=== PATIENT | male | born 1955 | race Hispanic/Latino ===

== ENCOUNTER 2017-07-30 15:44 | Inpatient (IN) | payer MEDICARE, BC ==
[2017-07-30 15:48] VITALS: BMI 31.9
[2017-07-30 16:58] LABS: BASO # 0.1 K/uL (0.0-0.2); BASO % 0.9 % (0.0-2.0); EOS # 0.1 K/uL (0.0-0.7); EOS % 1.1 % (0.0-4.0); HEMATOCRIT 38.6 % (35.0-51.0); LYMPH # 1.6 K/uL (1.0-4.3); LYMPH % 23.4 % (20.0-40.0); MEAN CELL VOLUME 90.7 fL (80.0-94.0); MEAN CORPUSCULAR HGB CONC 34.2 g/dL (33.0-37.0); MONO # 0.4 K/uL (0.0-0.8); RED CELL DISTRIBUTION WIDTH 13.8 % (11.5-14.5); WHITE BLOOD COUNT 6.8 K/uL (4.8-10.8)
[2017-07-30 17:06] LABS: CHLORIDE 96 mmol/L (98-107); INR 1.1
[2017-07-30 17:07] LABS: SODIUM 133 mmol/L (132-148)
[2017-07-30 17:09] LABS: CARBON DIOXIDE 22 mmol/L (22-30); GFR AFRICAN-AMERICAN > 60
[2017-07-30 17:10] LABS: ALB/GLOB RATIO 1.3 (1.0-2.1); ALKALINE PHOSPHATASE 61 U/L (38-126); ALT/SGPT 25 U/L (21-72); AST/SGOT 28 U/L (17-59); BILIRUBIN,TOTAL 0.7 mg/dL (0.2-1.3); BLOOD UREA NITROGEN 23 mg/dL (9-20); CALCIUM 8.8 mg/dl (8.6-10.4); GLUCOSE,RANDOM 91 mg/dL (75-110); TOTAL PROTEIN 7.6 g/dL (6.3-8.3)
[2017-07-30 17:11] LABS: POTASSIUM 4.9 mmol/L (3.6-5.2)
[2017-07-30] MEDS ORDERED: Piperacillin/Tazobact 3.375 gm 100 ML IV STA (17:23)
[2017-07-30] MEDS ORDERED: Piperacillin/Tazobact 3.375 gm 100 ML IVPB ONE (17:36)
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
--- NOTE | 2017-07-30 18:49 | C.PDOC ---
Time Seen by Provider: 07/30/17 16:03 Chief Complaint (Nursing): Lower Extremity Problem/Injury Past Medical History Vital Signs: Last Vital Signs Temp 98.2 F 07/30/17 18:11 Pulse 65 07/30/17 18:11 Resp 18 07/30/17 18:11 BP 132/75 07/30/17 18:11 Pulse Ox 98 07/30/17 18:11 - Medical History PMH: Seizures Family History: States: Unknown Family Hx - Social History Hx Tobacco Use: No Hx Alcohol Use: No Hx Substance Use: No - Immunization History Hx Tetanus Toxoid Vaccination: No Hx Influenza Vaccination: No Hx Pneumococcal Vaccination: No ED Course And Treatment - Laboratory Results Result Diagrams: 07/30/17 16:55 07/30/17 16:55 Lab Interpretation: Normal ECG: Interpreted By Me ECG Rhythm: Sinus Rhythm ECG Interpretation: Normal Rate From EC O2 Sat by Pulse Oximetry: 98 - Radiology CXR: Interpreted by Me CXR Interpretation: Yes: No Acute Disease - Other Rad L foot X-Ray: Interpreted by Me (L 2nd toe ? periosteal lifting, no SQ gas) Medical Decision Making Medical Decision Making: chronic L foot cellulitis, ? osteo tip of 2nd finger zoruslan empirically Podiatry w Dr. Peggy Stiles in AM Disposition Doctor Will See Patient In The: Hospital Counseled Patient/Family Regarding: Studies Performed, Diagnosis - Disposition Disposition: HOSPITALIZED Disposition Time: 18:49 Condition: GOOD - Clinical Impression Clinical Impression: Cellulitis of foot
--- NOTE | 2017-07-30 19:34 | RAD ---
PROCEDURE: CHEST RADIOGRAPH, 1 VIEW HISTORY: SOB COMPARISON: Portable chest 02/07/2015 FINDINGS: LUNGS: Clear. Improved inspiratory volume. PLEURA: No pneumothorax or pleural fluid seen. CARDIOVASCULAR: Stable cardiomegaly. No pulmonary vascular derangement identified. OSSEOUS STRUCTURES: Scoliotic thoracic spinal deformity again evident. VISUALIZED UPPER ABDOMEN: Normal. OTHER FINDINGS: None. IMPRESSION: Improved inspiratory volume. No acute infiltrate or pleural effusion bilaterally. Stable cardiomegaly.
--- NOTE | 2017-07-30 19:38 | RAD ---
PROCEDURE: Left Foot Radiographs. HISTORY: L toes cellulitis/osteo COMPARISON: None. FINDINGS: BONES: No acute fracture or suspicious lytic or blastic change identified. No definite periosteal reaction. Diffuse osteopenia suggests osteoporosis. Lucency in the digits is prominent and MRI may be useful for better evaluation of potential osteomyelitis than plain film radiography. JOINTS: No dislocation. However, there is diffuse degenerative joint disease manifest by articular cortical sclerosis and joint space narrowing throughout the joints of the forefoot midfoot and hindfoot. . SOFT TISSUES: Dorsal soft tissue edema is in question as well as posterior to the ankle in particular. OTHER FINDINGS: None. IMPRESSION: No fracture subluxation or dislocation. Node overt radiographic sign of osteomyelitis however the patient's level of osteopenia relatively prominent, particularly at the digits, that MRI may be useful for better evaluation of potential osteomyelitis than plain film radiography.
[2017-07-31] MEDS: Piperacill/Tazo 3.375gm in Dex 3.375 GM/50 ML BAG IVPB SCH ×5 (00:15→22:35)
[2017-07-31] MEDS: Pantoprazole 40 mg EC Tab PO SCH (09:58)
[2017-07-31] MEDS ORDERED: ESLICARBAZEPINE ACETATE PO SCH ×2 (10:00)
--- NOTE | 2017-07-31 10:50 | CP.PCM.PN ---
<Matti Stiles - Last Filed: 07/31/17 10:50> Subjective - Date & Time of Evaluation Date of Evaluation: 07/31/17 - Subjective Subjective: Pt seen this am . Objective - Vital Signs/Intake and Output Vital Signs (last 24 hours): Temp Pulse Resp BP Pulse Ox 97.6 F 61 20 125/69 96 07/31/17 07:37 07/31/17 07:37 07/31/17 07:37 07/31/17 07:37 07/31/17 07:37 Intake and Output: 07/31/17 07/31/17 06:59 18:59 Intake Total 220 Balance 220 - Medications Medications: Current Medications Heparin Sodium (Porcine) (Heparin) 5,000 units SC Q12 [facility] Last Admin: 07/31/17 10:02 Dose: Not Given Home Med (Eslicarbazepine Acetate [Aptiom]) 1,200 mg PO DAILY [facility] Piperacillin Sod/Tazobactam Sod (Zosyn 3.375 Gm Iv Premix) 3.375 gm in 50 mls @ 100 mls/hr IVPB Q6H [facility] Last Admin: 07/31/17 05:25 Dose: 100 mls/hr Lamotrigine (Lamictal) 200 mg PO TID [facility] Last Admin: 07/31/17 09:58 Dose: 200 mg Levetiracetam (Keppra) 2,000 mg PO BID [facility] Last Admin: 07/31/17 09:58 Dose: 2,000 mg Mupirocin (Bactroban Ointment) 0 gm TOP BID [facility] Last Admin: 07/31/17 10:40 Dose: Not Given Pantoprazole Sodium (Protonix Ec Tab) 40 mg PO DAILY [facility] Last Admin: 07/31/17 09:58 Dose: 40 mg Pneumococcal Polyvalent Vaccine (Pneumovax 23 Vaccine) 0.5 ml SC .ONCE ONE Stop: 08/02/17 10:01 - Labs Labs: 07/30/17 16:55 07/30/17 16:55 PT 12.1 SECONDS (9.7-12.2) 07/30/17 16:55 INR 1.1 07/30/17 16:55 APTT 35 SECONDS (21-34) H 07/30/17 16:55 <Chris Mina - Last Filed: 07/31/17 15:39> Subjective - Date & Time of Evaluation Date of Evaluation: 07/31/17 Time of Evaluation: 11:00 - Subjective Subjective: Podiatry Consult Note- Dr. Stiles 61 year old male patient seen at bedside for left foot ulcerations. Patient states that he is feeling well today and reports no changes with his feet. Patient denies any further pedal complaints at this time. Patient denies N/V/F/C /CP/SOB Objective - Vital Signs/Intake and Output Vital Signs (last 24 hours): Temp Pulse Resp BP Pulse Ox 97.6 F 61 20 125/69 96 07/31/17 07:37 07/31/17 07:37 07/31/17 07:37 07/31/17 07:37 07/31/17 07:37 Intake and Output: 07/31/17 07/31/17 06:59 18:59 Intake Total 220 Balance 220 - Medications Medications: Current Medications Heparin Sodium (Porcine) (Heparin) 5,000 units SC Q12 [facility] Last Admin: 07/31/17 10:02 Dose: Not Given Home Med (Eslicarbazepine Acetate [Aptiom]) 1,200 mg PO DAILY [facility] Piperacillin Sod/Tazobactam Sod (Zosyn 3.375 Gm Iv Premix) 3.375 gm in 50 mls @ 100 mls/hr IVPB Q6H [facility] Last Admin: 07/31/17 13:18 Dose: 100 mls/hr Lamotrigine (Lamictal) 200 mg PO TID [facility] Last Admin: 07/31/17 13:37 Dose: 200 mg Levetiracetam (Keppra) 2,000 mg PO BID [facility] Last Admin: 07/31/17 09:58 Dose: 2,000 mg Mupirocin (Bactroban Ointment) 0 gm TOP BID [facility] Last Admin: 07/31/17 10:40 Dose: Not Given Pantoprazole Sodium (Protonix Ec Tab) 40 mg PO DAILY [facility] Last Admin: 07/31/17 09:58 Dose: 40 mg Pneumococcal Polyvalent Vaccine (Pneumovax 23 Vaccine) 0.5 ml SC .ONCE ONE Stop: 08/02/17 10:01 - Labs Labs: 07/30/17 16:55 07/30/17 16:55 PT 12.1 SECONDS (9.7-12.2) 07/30/17 16:55 INR 1.1 07/30/17 16:55 APTT 35 SECONDS (21-34) H 07/30/17 16:55 - Constitutional Appears: Well, Non-toxic, No Acute Distress - Extremities Exam Additional comments: LLE exam: VASC- DP/PT pulses palpable, skin temp runs warm to warm (proximal to distal) cap refill < 3 sec to all digits, moderate edema noted to dorsum of left foot NEURO- pedal sensation intact DERM- superficial ulceration noted to dorsal aspect of 2nd digit between PIPJ and DIPJ with 100% granular base, neg probe to bone, no drainage, no fluctuance , no malodor, 3rd digit also has superficial ulceration to dorsal surface with 100% granular base, there is ertythema noted to dorsal aspect of the foot, no ascending cellulitis ORTHO- hammering of digits 2-5 noted, no tenderness to palp of foot - Neurological Exam Neurological Exam: Alert, Awake, Oriented x3 - Psychiatric Exam Psychiatric exam: Normal Affect, Normal Mood Assessment and Plan - Assessment and Plan (Free Text) Assessment: 61 yo male patient with ulcerations/cellulitis left foot (with possible OM) Plan: Patient seen and evaluated Charts, labs and vitals reviewed Plan discussed with Dr. Stiles Patient's foot dressed with DSD Xray of left foot negative for OM but MRI suggested Bone scan results: OM of left second digit Patient had MRI taken this morning: results pending Continue abx per ID No surgical intervention planned at this time Podiatry will continue to follow while patient in house
--- NOTE | 2017-07-31 14:06 | CP.PCM.PN ---
Subjective - Date & Time of Evaluation Date of Evaluation: 07/31/17 Time of Evaluation: 03:00 - Subjective Subjective: Patient seen, up in bed, ambulates, was seen by ui developer, bone scan ongoing no current complaints discussed local intermodal truck driver care and subacute Objective - Vital Signs/Intake and Output Vital Signs (last 24 hours): Temp Pulse Resp BP Pulse Ox 97.6 F 61 20 125/69 96 07/31/17 07:37 07/31/17 07:37 07/31/17 07:37 07/31/17 07:37 07/31/17 07:37 Intake and Output: 07/31/17 07/31/17 06:59 18:59 Intake Total 220 Balance 220 - Medications Medications: Current Medications Heparin Sodium (Porcine) (Heparin) 5,000 units SC Q12 [facility] Last Admin: 07/31/17 10:02 Dose: Not Given Home Med (Eslicarbazepine Acetate [Aptiom]) 1,200 mg PO DAILY [facility] Piperacillin Sod/Tazobactam Sod (Zosyn 3.375 Gm Iv Premix) 3.375 gm in 50 mls @ 100 mls/hr IVPB Q6H [facility] Last Admin: 07/31/17 13:18 Dose: 100 mls/hr Lamotrigine (Lamictal) 200 mg PO TID [facility] Last Admin: 07/31/17 13:37 Dose: 200 mg Levetiracetam (Keppra) 2,000 mg PO BID [facility] Last Admin: 07/31/17 09:58 Dose: 2,000 mg Mupirocin (Bactroban Ointment) 0 gm TOP BID [facility] Last Admin: 07/31/17 10:40 Dose: Not Given Pantoprazole Sodium (Protonix Ec Tab) 40 mg PO DAILY [facility] Last Admin: 07/31/17 09:58 Dose: 40 mg Pneumococcal Polyvalent Vaccine (Pneumovax 23 Vaccine) 0.5 ml SC .ONCE ONE Stop: 08/02/17 10:01 - Labs Labs: 07/30/17 16:55 07/30/17 16:55 PT 12.1 SECONDS (9.7-12.2) 07/30/17 16:55 INR 1.1 07/30/17 16:55 APTT 35 SECONDS (21-34) H 07/30/17 16:55 - Constitutional Appears: Well, Non-toxic, No Acute Distress - Head Exam Head Exam: ATRAUMATIC, NORMOCEPHALIC - Eye Exam Eye Exam: Normal appearance - Neck Exam Neck Exam: Full ROM - Respiratory Exam Respiratory Exam: Clear to Ausculation Bilateral, NORMAL BREATHING PATTERN - GI/Abdominal Exam GI & Abdominal Exam: Soft, Normal Bowel Sounds. absent: Tenderness - Extremities Exam Extremities Exam: Full ROM (left foot bandaged, notes as per ui developer ) - Back Exam Back Exam: absent: CVA tenderness (R), rash noted, tenderness - Neurological Exam Neurological Exam: Alert, Awake, Oriented x3. absent: Normal Gait - Psychiatric Exam Psychiatric exam: Normal Affect, Normal Mood - Skin Skin Exam: Intact (other than the lesion in left foot ), Normal Color Assessment and Plan - Assessment and Plan (Free Text) Assessment: Cellulitis left foot with possible ostemyelitis on antibiotic with podiatry care, ID consulted further discussion of local intermodal truck driver treatment and subaute Seizure disorder to continue current medications
--- NOTE | 2017-07-31 14:25 | NM ---
PROCEDURE: Whole Body Bone Scan HISTORY: osteomyelitis COMPARISON: Left foot MRI 07/31/2017. TECHNIQUE: Following administration of 23.1 miCu of Tc MDP multiplanar whole body images were obtained. FINDINGS: Evidence for bony metastatic disease: Persistent uptake is appreciated at the 2nd digit left foot. Degenerative uptake: None. Physiologic uptake: Normal physiologic activity in the kidneys. Other findings: None. IMPRESSION: Osteomyelitis of the left foot 2nd digit is suggested by this examination. Findings agree with MRI 07/31/2017. Clinically correlate further.
[2017-08-01] MEDS: Piperacill/Tazo 3.375gm in Dex 3.375 GM/50 ML BAG IVPB SCH ×4 (05:08→23:04)
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
[2017-08-01] MEDS: Pantoprazole 40 mg EC Tab PO SCH (10:39)
--- NOTE | 2017-08-01 11:37 | CP.PCM.PN ---
Subjective - Date & Time of Evaluation Date of Evaluation: 08/01/17 Time of Evaluation: 11:34 - Subjective Subjective: Podiatry Consult Note- Dr. Stiles 61 year old male patient seen at bedside for left foot ulcerations. Patient states that he is feeling well today and reports no changes with his feet. States that his dressing fell off in the sheets last night. Patient denies any further pedal complaints at this time. Patient denies N/V/F/C/CP/SOB Objective - Vital Signs/Intake and Output Vital Signs (last 24 hours): Temp Pulse Resp BP Pulse Ox 97.4 F L 59 L 20 133/71 97 08/01/17 07:47 08/01/17 07:47 08/01/17 07:47 08/01/17 07:47 08/01/17 07:47 Intake and Output: 08/01/17 08/01/17 06:59 18:59 Intake Total 680 Balance 680 - Medications Medications: Current Medications Heparin Sodium (Porcine) (Heparin) 5,000 units SC Q12 [facility] Last Admin: 08/01/17 10:40 Dose: 5,000 units Home Med (Eslicarbazepine Acetate [Aptiom]) 1,200 mg PO DAILY [facility] Piperacillin Sod/Tazobactam Sod (Zosyn 3.375 Gm Iv Premix) 3.375 gm in 50 mls @ 100 mls/hr IVPB Q6H [facility] Last Admin: 08/01/17 11:27 Dose: 100 mls/hr Lamotrigine (Lamictal) 200 mg PO TID [facility] Last Admin: 08/01/17 10:40 Dose: 200 mg Levetiracetam (Keppra) 2,000 mg PO BID [facility] Last Admin: 08/01/17 10:39 Dose: 2,000 mg Mupirocin (Bactroban Ointment) 0 gm TOP BID [facility] Last Admin: 08/01/17 11:26 Dose: 1 applic Pantoprazole Sodium (Protonix Ec Tab) 40 mg PO DAILY [facility] Last Admin: 08/01/17 10:39 Dose: 40 mg Pneumococcal Polyvalent Vaccine (Pneumovax 23 Vaccine) 0.5 ml SC .ONCE ONE Stop: 08/02/17 10:01 - Labs Labs: 07/30/17 16:55 07/30/17 16:55 PT 12.1 SECONDS (9.7-12.2) 07/30/17 16:55 INR 1.1 07/30/17 16:55 APTT 35 SECONDS (21-34) H 07/30/17 16:55 - Constitutional Appears: Well, Non-toxic, No Acute Distress - Extremities Exam Additional comments: LLE exam: VASC- DP/PT pulses palpable, skin temp runs warm to warm (proximal to distal) cap refill < 3 sec to all digits, moderate edema noted to dorsum of left foot NEURO- pedal sensation intact DERM- superficial ulceration noted to dorsal aspect of 2nd digit between PIPJ and DIPJ with 100% granular base, neg probe to bone, no drainage, no fluctuance , no malodor, 3rd digit also has superficial ulceration to dorsal surface with 100% granular base, there is ertythema noted to dorsal aspect of the foot, no ascending cellulitis ORTHO- hammering of digits 2-5 noted, no tenderness to palp of foot - Neurological Exam Neurological Exam: Alert, Awake, Oriented x3 - Psychiatric Exam Psychiatric exam: Normal Affect, Normal Mood Assessment and Plan - Assessment and Plan (Free Text) Assessment: 61 yo male patient with ulcerations/cellulitis left foot (with possible OM) Plan: Patient seen and evaluated Charts, labs and vitals reviewed Plan discussed with Dr. Stiles Patient's foot dressed with Bactroban, DSD Xray of left foot negative for OM but MRI suggested Bone scan results: OM of left second digit Patient had MRI taken yesterday: results pending Continue abx per ID No surgical intervention planned at this time Podiatry will continue to follow while patient in house
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
[2017-08-01] MEDS: Vancomycin 1 gm/NS 200 ml 1 GM/200 ML BAG IVPB SCH (17:54)
[2017-08-02] MEDS: Piperacill/Tazo 3.375gm in Dex 3.375 GM/50 ML BAG IVPB SCH ×4 (04:39→23:43)
[2017-08-02] MEDS: Vancomycin 1 gm/NS 200 ml 1 GM/200 ML BAG IVPB SCH ×2 (05:10→18:00)
[2017-08-02] MEDS: Pantoprazole 40 mg EC Tab PO SCH (10:00)
[2017-08-02] MEDS ORDERED: Pneumococcal 23-Valent Vaccine SC ONE (10:00)
--- NOTE | 2017-08-02 10:06 | MRI ---
MRI left forefoot History: Swelling. Evaluate for osteomyelitis. Comparison: Bone scan dated 07/31/2017 Technique: Multi-echo multiplanar sequences were performed through the left forefoot without the use of intravenous contrast. Findings: Prominent soft tissue swelling seen at the level of the 2nd digit. Prominent reactive edema seen within the 2nd middle phalanx with associated patchy decreased T1 signal noted at the head of the 2nd middle phalanx. These findings are concerning for acute and or developing acute osteomyelitis. Clinical correlation. Adjacent reactive edema seen within 2nd distal phalanx. Moderate hallux valgus deformity with degenerative changes at the metatarsus sesamoid joint space. Small amount of fluid noted within the tendon sheath of the flexor hallucis longus and flexor digitorum tendons. Impression: Findings concerning for acute osteomyelitis and or developing acute osteomyelitis at the level of the 2nd middle phalanx. Reactive edema within the 2nd distal phalanx. These findings were discordant from the preliminary report dated 07/31/2017 at 3:[address] Kenisha Cottrell from [facility]. These findings were discussed with nurse Gan at 10 a.m. on 08/02/[address] Tristan Zamarripa.
--- NOTE | 2017-08-02 11:33 | CP.PCM.PN ---
Subjective - Date & Time of Evaluation Date of Evaluation: 08/02/17 Time of Evaluation: 09:00 - Subjective Subjective: + OM await cultures possible OR pain less Objective - Vital Signs/Intake and Output Vital Signs (last 24 hours): Temp Pulse Resp BP Pulse Ox 98.1 F 61 19 157/87 H 98 08/02/17 07:36 08/02/17 07:36 08/02/17 07:36 08/02/17 07:36 08/02/17 07:36 Intake and Output: 08/02/17 08/02/17 06:59 18:59 Intake Total 1030 Output Total 850 Balance 180 - Medications Medications: Current Medications Heparin Sodium (Porcine) (Heparin) 5,000 units SC Q12 [facility] Last Admin: 08/01/17 21:41 Dose: 5,000 units Home Med (Eslicarbazepine Acetate [Aptiom]) 1,200 mg PO DAILY [facility] Piperacillin Sod/Tazobactam Sod (Zosyn 3.375 Gm Iv Premix) 3.375 gm in 50 mls @ 100 mls/hr IVPB Q6H [facility] Last Admin: 08/02/17 04:39 Dose: 100 mls/hr Vancomycin/Sodium Chloride (Vancocin) 1 gm in 200 mls @ 133.333 mls/hr IVPB Q12H [facility] Stop: 08/06/17 18:01 Last Admin: 08/02/17 05:10 Dose: 133.333 mls/hr Lamotrigine (Lamictal) 200 mg PO TID [facility] Last Admin: 08/01/17 17:34 Dose: 200 mg Levetiracetam (Keppra) 2,000 mg PO BID [facility] Last Admin: 08/01/17 17:34 Dose: 2,000 mg Mupirocin (Bactroban Ointment) 0 gm TOP BID [facility] Last Admin: 08/01/17 11:26 Dose: 1 applic Pantoprazole Sodium (Protonix Ec Tab) 40 mg PO DAILY [facility] Last Admin: 08/01/17 10:39 Dose: 40 mg - Labs Labs: 07/30/17 16:55 07/30/17 16:55 PT 12.1 SECONDS (9.7-12.2) 07/30/17 16:55 INR 1.1 07/30/17 16:55 APTT 35 SECONDS (21-34) H 07/30/17 16:55 - Constitutional Appears: Non-toxic, Cachectic, Chronically Ill - Head Exam Head Exam: NORMOCEPHALIC - Eye Exam Eye Exam: PERRL - ENT Exam ENT Exam: Mucous Membranes Dry, Normal External Ear Exam - Neck Exam Neck Exam: absent: Lymphadenopathy - Respiratory Exam Respiratory Exam: Decreased Breath Sounds, Clear to Ausculation Bilateral - Cardiovascular Exam Cardiovascular Exam: REGULAR RHYTHM, +S1, +S2 - GI/Abdominal Exam GI & Abdominal Exam: Distended, Soft - Rectal Exam Rectal Exam: Deferred - Exam Exam: NORMAL INSPECTION - Extremities Exam Extremities Exam: Pedal Edema, Tenderness. absent: Calf Tenderness - Back Exam Back Exam: absent: CVA tenderness (L), CVA tenderness (R) Assessment and Plan (1) Osteomyelitis Status: Acute (2) Osteomyelitis Status: Acute (3) Cellulitis of foot Status: Acute - Assessment and Plan (Free Text) Assessment: IV rx adjusted
--- NOTE | 2017-08-02 17:16 | CP.PCM.PN ---
<Chris Mina - Last Filed: 08/02/17 17:13> Subjective - Date & Time of Evaluation Date of Evaluation: 08/02/17 Time of Evaluation: 11:00 - Subjective Subjective: Podiatry Consult Note- Dr. Stiles 61 year old male patient seen at bedside for left foot ulcerations and OM of left second digit. Patient states that he is feeling well today and reports no changes with his feet. Patient denies any further pedal complaints at this time. Patient denies N/V/F/C/CP/SOB Objective - Vital Signs/Intake and Output Vital Signs (last 24 hours): Temp Pulse Resp BP Pulse Ox 98.1 F 61 19 157/87 H 98 08/02/17 07:36 08/02/17 07:36 08/02/17 07:36 08/02/17 07:36 08/02/17 07:36 Intake and Output: 08/02/17 08/02/17 06:59 18:59 Intake Total 1030 Output Total 850 Balance 180 - Medications Medications: Current Medications Heparin Sodium (Porcine) (Heparin) 5,000 units SC Q12 [facility] Last Admin: 08/02/17 10:00 Dose: 5,000 units Home Med (Eslicarbazepine Acetate [Aptiom]) 1,200 mg PO DAILY [facility] Piperacillin Sod/Tazobactam Sod (Zosyn 3.375 Gm Iv Premix) 3.375 gm in 50 mls @ 100 mls/hr IVPB Q6H [facility] Last Admin: 08/02/17 12:04 Dose: 100 mls/hr Vancomycin/Sodium Chloride (Vancocin) 1 gm in 200 mls @ 133.333 mls/hr IVPB Q12H [facility] Stop: 08/06/17 18:01 Last Admin: 08/02/17 05:10 Dose: 133.333 mls/hr Lamotrigine (Lamictal) 200 mg PO TID [facility] Last Admin: 08/02/17 15:25 Dose: 200 mg Levetiracetam (Keppra) 2,000 mg PO BID [facility] Last Admin: 08/02/17 10:00 Dose: 2,000 mg Mupirocin (Bactroban Ointment) 0 gm TOP BID [facility] Last Admin: 08/02/17 09:00 Dose: Not Given Pantoprazole Sodium (Protonix Ec Tab) 40 mg PO DAILY [facility] Last Admin: 08/02/17 10:00 Dose: 40 mg - Labs Labs: 07/30/17 16:55 07/30/17 16:55 PT 12.1 SECONDS (9.7-12.2) 07/30/17 16:55 INR 1.1 07/30/17 16:55 APTT 35 SECONDS (21-34) H 07/30/17 16:55 - Constitutional Appears: Well, Non-toxic, No Acute Distress - Extremities Exam Additional comments: LLE exam: VASC- DP/PT pulses palpable, skin temp runs warm to warm (proximal to distal) cap refill < 3 sec to all digits, moderate edema noted to dorsum of left foot NEURO- pedal sensation intact DERM- superficial ulceration noted to dorsal aspect of 2nd digit between PIPJ and DIPJ, neg probe to bone, no drainage, no fluctuance, no malodor, 3rd digit also has superficial ulceration to dorsal surface, there is ertythema noted to dorsal aspect of the foot, no ascending cellulitis ORTHO- hammering of digits 2-5 noted, no tenderness to palp of foot - Neurological Exam Neurological Exam: Alert, Awake, Oriented x3 - Psychiatric Exam Psychiatric exam: Normal Affect, Normal Mood Assessment and Plan - Assessment and Plan (Free Text) Assessment: 61 year old male with OM of left second digit Plan: Patient seen and evaluated with attending Dr. Stiles Charts, labs and vitals reviewed Patient's foot dressed with Bactroban, DSD MRI (+) OM left second digit middle and distal phalanx Continue abx per ID Arterial duplex of LLE ordered Pending results, plan for local resection of infected bone and infected soft tissue Podiatry will continue to follow while patient in house <Matti Stiles - Last Filed: 08/03/17 09:21> Objective - Vital Signs/Intake and Output Vital Signs (last 24 hours): Temp Pulse Resp BP Pulse Ox 98.0 F 88 20 136/79 99 08/03/17 08:31 08/03/17 08:31 08/03/17 08:31 08/03/17 08:31 08/03/17 08:31 - Medications Medications: Current Medications Heparin Sodium (Porcine) (Heparin) 5,000 units SC Q12 [facility] Last Admin: 08/02/17 21:27 Dose: 5,000 units Home Med (Eslicarbazepine Acetate [Aptiom]) 1,200 mg PO DAILY [facility] Piperacillin Sod/Tazobactam Sod (Zosyn 3.375 Gm Iv Premix) 3.375 gm in 50 mls @ 100 mls/hr IVPB Q6H [facility] Last Admin: 08/03/17 05:05 Dose: 100 mls/hr Vancomycin/Sodium Chloride (Vancocin) 1 gm in 200 mls @ 133.333 mls/hr IVPB Q12H [facility] Stop: 08/06/17 18:01 Last Admin: 08/03/17 05:06 Dose: 133.333 mls/hr Lamotrigine (Lamictal) 200 mg PO TID [facility] Last Admin: 08/02/17 18:01 Dose: 200 mg Levetiracetam (Keppra) 2,000 mg PO BID [facility] Last Admin: 08/02/17 18:02 Dose: 2,000 mg Mupirocin (Bactroban Ointment) 0 gm TOP BID [facility] Last Admin: 08/02/17 21:31 Dose: Not Given Pantoprazole Sodium (Protonix Ec Tab) 40 mg PO DAILY [facility] Last Admin: 08/02/17 10:00 Dose: 40 mg - Labs Labs: 08/03/17 07:43 08/03/17 07:43 PT 12.1 SECONDS (9.7-12.2) 07/30/17 16:55 INR 1.1 07/30/17 16:55 APTT 35 SECONDS (21-34) H 07/30/17 16:55 Assessment and Plan - Assessment and Plan (Free Text) Plan: Pt seen and examined at bedside with resident . chart and labs reviewed. agree with above findings .
--- NOTE | 2017-08-02 17:42 | CP.PCM.PN ---
Subjective - Date & Time of Evaluation Date of Evaluation: 08/02/17 Time of Evaluation: 03:00 - Subjective Subjective: Patient seen, ambulatory conversant aware of condition and plan ongoing antibiotic no pain no complaints Seen by podiatris- plan for surgical rocedure? as per notes Objective - Vital Signs/Intake and Output Vital Signs (last 24 hours): Temp Pulse Resp BP Pulse Ox 98.1 F 61 19 157/87 H 98 08/02/17 07:36 08/02/17 07:36 08/02/17 07:36 08/02/17 07:36 08/02/17 07:36 Intake and Output: 08/02/17 08/02/17 06:59 18:59 Intake Total 1030 Output Total 850 Balance 180 - Medications Medications: Current Medications Heparin Sodium (Porcine) (Heparin) 5,000 units SC Q12 [facility] Last Admin: 08/02/17 10:00 Dose: 5,000 units Home Med (Eslicarbazepine Acetate [Aptiom]) 1,200 mg PO DAILY [facility] Piperacillin Sod/Tazobactam Sod (Zosyn 3.375 Gm Iv Premix) 3.375 gm in 50 mls @ 100 mls/hr IVPB Q6H [facility] Last Admin: 08/02/17 12:04 Dose: 100 mls/hr Vancomycin/Sodium Chloride (Vancocin) 1 gm in 200 mls @ 133.333 mls/hr IVPB Q12H [facility] Stop: 08/06/17 18:01 Last Admin: 08/02/17 05:10 Dose: 133.333 mls/hr Lamotrigine (Lamictal) 200 mg PO TID [facility] Last Admin: 08/02/17 15:25 Dose: 200 mg Levetiracetam (Keppra) 2,000 mg PO BID [facility] Last Admin: 08/02/17 10:00 Dose: 2,000 mg Mupirocin (Bactroban Ointment) 0 gm TOP BID [facility] Last Admin: 08/02/17 09:00 Dose: Not Given Pantoprazole Sodium (Protonix Ec Tab) 40 mg PO DAILY [facility] Last Admin: 08/02/17 10:00 Dose: 40 mg - Labs Labs: 07/30/17 16:55 07/30/17 16:55 PT 12.1 SECONDS (9.7-12.2) 07/30/17 16:55 INR 1.1 07/30/17 16:55 APTT 35 SECONDS (21-34) H 07/30/17 16:55 - Constitutional Appears: Well, Non-toxic - Head Exam Head Exam: ATRAUMATIC, NORMOCEPHALIC - Eye Exam Eye Exam: Normal appearance - ENT Exam ENT Exam: Mucous Membranes Moist - Neck Exam Neck Exam: Full ROM - Respiratory Exam Respiratory Exam: Clear to Ausculation Bilateral, NORMAL BREATHING PATTERN - Cardiovascular Exam Cardiovascular Exam: REGULAR RHYTHM - GI/Abdominal Exam GI & Abdominal Exam: Soft, Normal Bowel Sounds. absent: Tenderness - Extremities Exam Extremities Exam: Full ROM (left foot bandaged, no soiling - notes as per ortho noted) - Back Exam Back Exam: Full ROM. absent: tenderness - Neurological Exam Neurological Exam: Alert, Awake, Oriented x3 (gait abnormal due to accident ) - Psychiatric Exam Psychiatric exam: Normal Affect, Normal Mood - Skin Skin Exam: Intact (other than the left foot ), Normal Color Assessment and Plan - Assessment and Plan (Free Text) Plan: Patient with seizure disorder stable admitted for Osteomyelitis left foot second toe, podiatry on case- ongoing work up- continue antibiotic pending podiatry procedure, will send to subacute when cleared accordingly
[2017-08-03] MEDS: Piperacill/Tazo 3.375gm in Dex 3.375 GM/50 ML BAG IVPB SCH ×3 (05:05→17:53)
[2017-08-03] MEDS: Vancomycin 1 gm/NS 200 ml 1 GM/200 ML BAG IVPB SCH ×2 (05:06→18:00)
[2017-08-03 07:56] LABS: BASO % 0.6 % (0.0-2.0); EOS # 0.1 K/uL (0.0-0.7); EOS % 1.6 % (0.0-4.0); HEMATOCRIT 41.1 % (35.0-51.0); LYMPH # 1.8 K/uL (1.0-4.3); LYMPH % 30.5 % (20.0-40.0); MEAN CORPUSCULAR HEMOGLOBIN 30.8 pg (27.0-31.0); MEAN CORPUSCULAR HGB CONC 33.9 g/dL (33.0-37.0); MEAN PLATELET VOLUME 7.5 fL (7.2-11.7); MONO # 0.4 K/uL (0.0-0.8); MONO % 7.5 % (0.0-10.0); RED CELL DISTRIBUTION WIDTH 14.1 % (11.5-14.5); WHITE BLOOD COUNT 5.9 K/uL (4.8-10.8)
[2017-08-03 08:26] LABS: CHLORIDE 99 mmol/L (98-107); POTASSIUM 4.2 mmol/L (3.6-5.2); SODIUM 140 mmol/L (132-148)
[2017-08-03 08:29] LABS: BLOOD UREA NITROGEN 15 mg/dL (9-20); CARBON DIOXIDE 28 mmol/L (22-30); GFR AFRICAN-AMERICAN > 60
[2017-08-03 08:30] LABS: GLUCOSE,RANDOM 85 mg/dL (75-110)
[2017-08-03 08:32] VITALS: RESP 20
--- NOTE | 2017-08-03 10:04 | CP.PCM.PN ---
<AndreySanju - Last Filed: 08/03/17 21:32> Objective - Vital Signs/Intake and Output Vital Signs (last 24 hours): Temp Pulse Resp BP Pulse Ox 97.5 F L 62 20 126/66 97 08/03/17 16:00 08/03/17 16:00 08/03/17 16:00 08/03/17 16:00 08/03/17 16:00 - Medications Medications: Current Medications Home Med (Eslicarbazepine Acetate [Aptiom]) 1,200 mg PO DAILY [facility] Piperacillin Sod/Tazobactam Sod (Zosyn 3.375 Gm Iv Premix) 3.375 gm in 50 mls @ 100 mls/hr IVPB Q6H [facility] Last Admin: 08/03/17 17:53 Dose: 100 mls/hr Vancomycin/Sodium Chloride (Vancocin) 1 gm in 200 mls @ 133.333 mls/hr IVPB Q12H [facility] Stop: 08/06/17 18:01 Last Admin: 08/03/17 18:00 Dose: 133.333 mls/hr Lamotrigine (Lamictal) 200 mg PO TID [facility] Last Admin: 08/03/17 17:58 Dose: 200 mg Levetiracetam (Keppra) 2,000 mg PO BID [facility] Last Admin: 08/03/17 17:55 Dose: 2,000 mg Mupirocin (Bactroban Ointment) 0 gm TOP BID [facility] Last Admin: 08/03/17 18:00 Dose: 1 applic Pantoprazole Sodium (Protonix Ec Tab) 40 mg PO DAILY [facility] Last Admin: 08/03/17 11:00 Dose: 40 mg - Labs Labs: 08/03/17 07:43 08/03/17 07:43 PT 12.1 SECONDS (9.7-12.2) 07/30/17 16:55 INR 1.1 07/30/17 16:55 APTT 35 SECONDS (21-34) H 07/30/17 16:55 - Constitutional Appears: Well, Non-toxic, No Acute Distress - Extremities Exam Additional comments: LLE exam: VASC- DP/PT pulses palpable, skin temp runs warm to warm (proximal to distal) cap refill < 3 sec to all digits, moderate edema noted to dorsum of left foot NEURO- pedal sensation intact DERM- superficial ulceration noted to dorsal aspect of 2nd digit between PIPJ and DIPJ, neg probe to bone, no drainage, no fluctuance, no malodor, 3rd digit also has superficial ulceration to dorsal surface, there is ertythema noted to dorsal aspect of the foot, no ascending cellulitis ORTHO- hammering of digits 2-5 noted, no tenderness to palp of foot Assessment and Plan - Assessment and Plan (Free Text) Assessment: 61 year old male with OM of left second digit Plan: Patient seen and evaluated with attending Dr. Stiles Charts, labs and vitals reviewed Patient's foot dressed with Bactroban, DSD MRI (+) OM left second digit middle and distal phalanx Continue abx per ID Arterial duplex of LLE-pending. -Discussed with patient at length 3 potential treatment option for his local osetomyelitis ranging rom conservative to invasive. 1) 6-8 weeks of IV antibiotics- pt informed treatment not guaranteed and infection my reappear and be resistant to antibiotics. 2) Digital partial amputation if infected bone- discussed amputation wound complications. 3) partial exostectomy- discussed that potential infected bone may remain and infection could progress with further need for amputation. All patient question were answered to his satisfaction, and pt opted for IV abx treatment at this time. -To coordinate with ID outpatient IV treatment option. With potential placement in [facility] facility. Podiatry will continue to follow while patient in house <Matti Stiles - Last Filed: 08/04/17 10:12> Subjective - Date & Time of Evaluation Date of Evaluation: 08/03/17 Time of Evaluation: 10:00 - Subjective Subjective: Om of middle and distal Phalanx toe 2 left with ulcer full thickness noted in area dorsally . 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 Objective - Vital Signs/Intake and Output Vital Signs (last 24 hours): Temp Pulse Resp BP Pulse Ox 98.0 F 88 20 136/79 99 08/03/17 08:31 08/03/17 08:31 08/03/17 08:31 08/03/17 08:31 08/03/17 08:31 - Medications Medications: Current Medications Heparin Sodium (Porcine) (Heparin) 5,000 units SC Q12 [facility] Last Admin: 08/02/17 21:27 Dose: 5,000 units Home Med (Eslicarbazepine Acetate [Aptiom]) 1,200 mg PO DAILY [facility] Piperacillin Sod/Tazobactam Sod (Zosyn 3.375 Gm Iv Premix) 3.375 gm in 50 mls @ 100 mls/hr IVPB Q6H [facility] Last Admin: 08/03/17 05:05 Dose: 100 mls/hr Vancomycin/Sodium Chloride (Vancocin) 1 gm in 200 mls @ 133.333 mls/hr IVPB Q12H [facility] Stop: 08/06/17 18:01 Last Admin: 08/03/17 05:06 Dose: 133.333 mls/hr Lamotrigine (Lamictal) 200 mg PO TID [facility] Last Admin: 08/02/17 18:01 Dose: 200 mg Levetiracetam (Keppra) 2,000 mg PO BID [facility] Last Admin: 08/02/17 18:02 Dose: 2,000 mg Mupirocin (Bactroban Ointment) 0 gm TOP BID [facility] Last Admin: 08/02/17 21:31 Dose: Not Given Pantoprazole Sodium (Protonix Ec Tab) 40 mg PO DAILY [facility] Last Admin: 08/02/17 10:00 Dose: 40 mg - Labs Labs: 08/03/17 07:43 08/03/17 07:43 PT 12.1 SECONDS (9.7-12.2) 07/30/17 16:55 INR 1.1 07/30/17 16:55 APTT 35 SECONDS (21-34) H 07/30/17 16:55 Assessment and Plan - Assessment and Plan (Free Text) Plan: pt seen and evaluated at bedside . all results reviewed with patient as well as treatment options .agrre with above .Pt opts for 6-8 wks of antibiotics fully informed .DR Stiles.
[2017-08-03] MEDS ORDERED: Lidocaine 2% Inj (20ml) ONE (10:10)
--- NOTE | 2017-08-03 10:21 | PCM.SURG1 ---
Surgeon's Initial Post Op Note - Surgeon's Notes Surgeon: Gaurang Medley MD Insulator Helper: NONE Type of Anesthesia: Local Pre-Operative Diagnosis: Poor venous access Operative Findings: Patent right basilic vein Post-Operative Diagnosis: Poor venous access Operation Performed: Single lumen picc placement right basilic vein, 41 cm. Tip is in the SVC. Specimen/Specimens Removed: None Estimated Blood Loss: EBL {In ML}: 0 Blood Products Given: N/A Drains Used: No Drains Post-Op Condition: Fair Date of Surgery/Procedure: 08/03/17 Time of Surgery/Procedure: 10:10
[2017-08-03] MEDS: Pantoprazole 40 mg EC Tab PO SCH (11:00)
--- NOTE | 2017-08-03 12:38 | CP.PCM.PN ---
Subjective - Date & Time of Evaluation Date of Evaluation: 08/03/17 Time of Evaluation: 08:00 - Subjective Subjective: IV RX IN [id number] FOR OM Objective - Vital Signs/Intake and Output Vital Signs (last 24 hours): Temp Pulse Resp BP Pulse Ox 98.0 F 88 20 136/79 99 08/03/17 08:31 08/03/17 08:31 08/03/17 08:31 08/03/17 08:31 08/03/17 08:31 - Medications Medications: Current Medications Home Med (Eslicarbazepine Acetate [Aptiom]) 1,200 mg PO DAILY [facility] Piperacillin Sod/Tazobactam Sod (Zosyn 3.375 Gm Iv Premix) 3.375 gm in 50 mls @ 100 mls/hr IVPB Q6H [facility] Last Admin: 08/03/17 11:00 Dose: 100 mls/hr Vancomycin/Sodium Chloride (Vancocin) 1 gm in 200 mls @ 133.333 mls/hr IVPB Q12H [facility] Stop: 08/06/17 18:01 Last Admin: 08/03/17 05:06 Dose: 133.333 mls/hr Lamotrigine (Lamictal) 200 mg PO TID [facility] Last Admin: 08/03/17 11:00 Dose: 200 mg Levetiracetam (Keppra) 2,000 mg PO BID [facility] Last Admin: 08/03/17 11:00 Dose: 2,000 mg Mupirocin (Bactroban Ointment) 0 gm TOP BID [facility] Last Admin: 08/03/17 10:59 Dose: 1 applic Pantoprazole Sodium (Protonix Ec Tab) 40 mg PO DAILY [facility] Last Admin: 08/03/17 11:00 Dose: 40 mg - Labs Labs: 08/03/17 07:43 08/03/17 07:43 PT 12.1 SECONDS (9.7-12.2) 07/30/17 16:55 INR 1.1 07/30/17 16:55 APTT 35 SECONDS (21-34) H 07/30/17 16:55 - Constitutional Appears: Non-toxic, Chronically Ill - Head Exam Head Exam: NORMOCEPHALIC - Eye Exam Eye Exam: PERRL. absent: Scleral icterus - ENT Exam ENT Exam: Normal External Ear Exam - Neck Exam Neck Exam: absent: Lymphadenopathy - Respiratory Exam Respiratory Exam: Decreased Breath Sounds - Cardiovascular Exam Cardiovascular Exam: REGULAR RHYTHM - GI/Abdominal Exam GI & Abdominal Exam: Distended - Rectal Exam Rectal Exam: Deferred - Exam Exam: NORMAL INSPECTION Assessment and Plan (1) Osteomyelitis Status: Acute (2) Osteomyelitis Status: Acute (3) Cellulitis of foot Status: Acute
--- NOTE | 2017-08-03 15:12 | CP.PCM.PN ---
Subjective - Date & Time of Evaluation Date of Evaluation: 08/03/17 Time of Evaluation: 03:30 - Subjective Subjective: Patient seen, in bed sister by bedside- no complaint aware of conditon notes of podiatry antibiotic versus amputation and antibiotic patient discussion- decision subacute after Objective - Vital Signs/Intake and Output Vital Signs (last 24 hours): Temp Pulse Resp BP Pulse Ox 98.0 F 88 20 136/79 99 08/03/17 08:31 08/03/17 12:20 08/03/17 08:31 08/03/17 12:20 08/03/17 12:20 - Medications Medications: Current Medications Home Med (Eslicarbazepine Acetate [Aptiom]) 1,200 mg PO DAILY [facility] Piperacillin Sod/Tazobactam Sod (Zosyn 3.375 Gm Iv Premix) 3.375 gm in 50 mls @ 100 mls/hr IVPB Q6H [facility] Last Admin: 08/03/17 11:00 Dose: 100 mls/hr Vancomycin/Sodium Chloride (Vancocin) 1 gm in 200 mls @ 133.333 mls/hr IVPB Q12H [facility] Stop: 08/06/17 18:01 Last Admin: 08/03/17 05:06 Dose: 133.333 mls/hr Lamotrigine (Lamictal) 200 mg PO TID [facility] Last Admin: 08/03/17 13:43 Dose: 200 mg Levetiracetam (Keppra) 2,000 mg PO BID [facility] Last Admin: 08/03/17 11:00 Dose: 2,000 mg Mupirocin (Bactroban Ointment) 0 gm TOP BID [facility] Last Admin: 08/03/17 10:59 Dose: 1 applic Pantoprazole Sodium (Protonix Ec Tab) 40 mg PO DAILY [facility] Last Admin: 08/03/17 11:00 Dose: 40 mg - Labs Labs: 08/03/17 07:43 08/03/17 07:43 PT 12.1 SECONDS (9.7-12.2) 07/30/17 16:55 INR 1.1 07/30/17 16:55 APTT 35 SECONDS (21-34) H 07/30/17 16:55 - Constitutional Appears: Non-toxic, No Acute Distress - Head Exam Head Exam: ATRAUMATIC, NORMOCEPHALIC - Eye Exam Eye Exam: Normal appearance. absent: Nystagmus - ENT Exam ENT Exam: Mucous Membranes Moist - Neck Exam Neck Exam: Full ROM - Respiratory Exam Respiratory Exam: Clear to Ausculation Bilateral, NORMAL BREATHING PATTERN - Cardiovascular Exam Cardiovascular Exam: REGULAR RHYTHM - Extremities Exam Extremities Exam: Full ROM (left foot bandaged nosoiling ) - Neurological Exam Neurological Exam: Alert, Awake, Oriented x3 (gait always abnormal- due to accident ) - Psychiatric Exam Psychiatric exam: Normal Affect, Normal Mood - Skin Skin Exam: Normal Color Assessment and Plan - Assessment and Plan (Free Text) Assessment: Patient with Seizure that is controlled admitted fr osteomyelitis left foot- podiatry plan- surgery versus antibiotic discussion with patient after which to subacute currently stable
[2017-08-03 16:27] VITALS: O2SAT 97
--- NOTE | 2017-08-03 22:04 | CARD ---
APPROVED REPORT EKG Measurement Heart [id number] NM [id number] <Conclusion> Normal sinus rhythm Normal ECG
[2017-08-03 23:56] VITALS: TEMP 97.8
[2017-08-04] MEDS: Piperacill/Tazo 3.375gm in Dex 3.375 GM/50 ML BAG IVPB SCH ×4 (00:27→16:45)
[2017-08-04] MEDS: Vancomycin 1 gm/NS 200 ml 1 GM/200 ML BAG IVPB SCH ×2 (06:40→18:21)
--- NOTE | 2017-08-04 06:47 | CP.PCM.PN ---
Subjective - Date & Time of Evaluation Date of Evaluation: 08/04/17 Time of Evaluation: 07:10 - Subjective Subjective: Podiatry Consult Note- Dr. Stiles 61 year old male patient seen at bedside for left foot ulcerations and OM of left second digit. Patient states that he is feeling well today and reports no changes with his feet. Patient denies any further pedal complaints at this time. Patient denies N/V/F/C/CP/SOB Objective - Vital Signs/Intake and Output Vital Signs (last 24 hours): Temp Pulse Resp BP Pulse Ox 97.8 F 60 20 130/74 97 08/03/17 23:00 08/03/17 23:00 08/03/17 23:00 08/03/17 23:00 08/03/17 23:00 - Medications Medications: Current Medications Home Med (Eslicarbazepine Acetate [Aptiom]) 1,200 mg PO DAILY [facility] Piperacillin Sod/Tazobactam Sod (Zosyn 3.375 Gm Iv Premix) 3.375 gm in 50 mls @ 100 mls/hr IVPB Q6H [facility] Last Admin: 08/04/17 05:23 Dose: 100 mls/hr Vancomycin/Sodium Chloride (Vancocin) 1 gm in 200 mls @ 133.333 mls/hr IVPB Q12H [facility] Stop: 08/06/17 18:01 Last Admin: 08/04/17 06:40 Dose: 133.333 mls/hr Lamotrigine (Lamictal) 200 mg PO TID [facility] Last Admin: 08/03/17 17:58 Dose: 200 mg Levetiracetam (Keppra) 2,000 mg PO BID [facility] Last Admin: 08/03/17 17:55 Dose: 2,000 mg Mupirocin (Bactroban Ointment) 0 gm TOP BID [facility] Last Admin: 08/03/17 18:00 Dose: 1 applic Pantoprazole Sodium (Protonix Ec Tab) 40 mg PO DAILY [facility] Last Admin: 08/03/17 11:00 Dose: 40 mg - Labs Labs: 08/03/17 07:43 08/03/17 07:43 PT 12.1 SECONDS (9.7-12.2) 07/30/17 16:55 INR 1.1 07/30/17 16:55 APTT 35 SECONDS (21-34) H 07/30/17 16:55 - Constitutional Appears: Well, Non-toxic, No Acute Distress - Extremities Exam Additional comments: LLE exam: VASC- DP/PT pulses palpable, skin temp runs warm to warm (proximal to distal) cap refill < 3 sec to all digits, moderate edema noted to dorsum of left foot NEURO- pedal sensation intact DERM- superficial ulceration noted to dorsal aspect of 2nd digit between PIPJ and DIPJ, neg probe to bone, no drainage, no fluctuance, no malodor, 3rd digit also has superficial ulceration to dorsal surface, there is ertythema noted to dorsal aspect of the foot, no ascending cellulitis ORTHO- hammering of digits 2-5 noted, no tenderness to palp of foot - Neurological Exam Neurological Exam: Alert, Awake, Oriented x3 - Psychiatric Exam Psychiatric exam: Normal Affect, Normal Mood Assessment and Plan - Assessment and Plan (Free Text) Assessment: 61 year old male with OM of left second digit Plan: Patient seen and evaluated. Charts, labs and vitals reviewed Discussed with attending Dr. Stiles in detail who endorsed the following plan. 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 Arterial duplex of LLE ordered Podiatry will continue to follow while patient in house
[2017-08-04] MEDS: Pantoprazole 40 mg EC Tab PO SCH (09:46)
[2017-08-04] MEDS ORDERED: ESLICARBAZEPINE ACETATE PO SCH (10:00)
--- NOTE | 2017-08-04 12:20 | CP.PCM.PN ---
Subjective - Date & Time of Evaluation Date of Evaluation: 08/04/17 Time of Evaluation: 00:30 - Subjective Subjective: patient seen had made decision to have antibiotic - no surgery sister by bedside he has no other complaint seizure medication completed he is very much aware of plan Objective - Vital Signs/Intake and Output Vital Signs (last 24 hours): Temp Pulse Resp BP Pulse Ox 97.8 F 68 20 138/95 H 97 08/04/17 08:25 08/04/17 08:25 08/04/17 08:25 08/04/17 08:25 08/04/17 08:25 Intake and Output: 08/04/17 08/04/17 06:59 18:59 Intake Total 500 Output Total 900 Balance -400 - Medications Medications: Current Medications Home Med (Eslicarbazepine Acetate [Aptiom]) 1,200 mg PO DAILY [facility] Last Admin: 08/04/17 09:51 Dose: 1,200 mg Piperacillin Sod/Tazobactam Sod (Zosyn 3.375 Gm Iv Premix) 3.375 gm in 50 mls @ 100 mls/hr IVPB Q6H [facility] Last Admin: 08/04/17 05:23 Dose: 100 mls/hr Vancomycin/Sodium Chloride (Vancocin) 1 gm in 200 mls @ 133.333 mls/hr IVPB Q12H [facility] Stop: 08/06/17 18:01 Last Admin: 08/04/17 06:40 Dose: 133.333 mls/hr Lamotrigine (Lamictal) 200 mg PO TID [facility] Last Admin: 08/04/17 09:46 Dose: 200 mg Levetiracetam (Keppra) 2,000 mg PO BID [facility] Last Admin: 08/04/17 09:46 Dose: 2,000 mg Mupirocin (Bactroban Ointment) 0 gm TOP BID [facility] Last Admin: 08/04/17 09:47 Dose: 1 applic Pantoprazole Sodium (Protonix Ec Tab) 40 mg PO DAILY [facility] Last Admin: 08/04/17 09:46 Dose: 40 mg - Labs Labs: 08/03/17 07:43 08/03/17 07:43 PT 12.1 SECONDS (9.7-12.2) 07/30/17 16:55 INR 1.1 07/30/17 16:55 APTT 35 SECONDS (21-34) H 07/30/17 16:55 - Constitutional Appears: Well, Non-toxic - Head Exam Head Exam: ATRAUMATIC, NORMAL INSPECTION, NORMOCEPHALIC - Eye Exam Eye Exam: Normal appearance. absent: Nystagmus - ENT Exam ENT Exam: Mucous Membranes Moist - Neck Exam Neck Exam: Full ROM - Respiratory Exam Respiratory Exam: Clear to Ausculation Bilateral, NORMAL BREATHING PATTERN - Cardiovascular Exam Cardiovascular Exam: REGULAR RHYTHM - GI/Abdominal Exam GI & Abdominal Exam: Soft, Normal Bowel Sounds. absent: Tenderness - Extremities Exam Extremities Exam: Full ROM (left weakness left foot bandaged no obvious edema) - Back Exam Back Exam: absent: tenderness - Neurological Exam Neurological Exam: Alert, Awake, Oriented x3 - Psychiatric Exam Psychiatric exam: Normal Affect, Normal Mood - Skin Skin Exam: Normal Color Assessment and Plan - Assessment and Plan (Free Text) Assessment: Osteomyelitis left foot- patient refused surgery at this point he will try antibiotic- he will go to subacute , surgery accordingly he will continue his seizure medication clinic accordingly
[2017-08-04] MEDS ORDERED: Influenza Vaccine 60 mcg/0.5 mL SYR (4YR UP) IM ONE (14:11)
--- NOTE | 2017-08-04 15:31 | SPECPROC ---
PROCEDURE: Date of procedure: 08/03/2017 Procedure: 1. Placement of a right arm PICC with ultrasound and fluoroscopic guidance, CPT 45135 2. PICC tip confirmation with spot radiograph and is in the superior vena cava Medications: 3cc 1 percent lidocaine HISTORY: Infection requiring long-term IV antibiotics TECHNIQUE: Following informed consent and procedure time-out, the patient was placed supine on the interventional table and the right arm prepped and draped in the usual sterile fashion. Ultrasound showed a patent and compressible right basilic vein. After the skin was anesthetized with lidocaine, the basilic vein was accessed with micro micropuncture technique using ultrasound guidance. A guidewire was then advanced under fluoroscopic guidance into the superior vena cava. An image documenting ultrasound guidance for vascular access was permanently saved. The length of the single-lumen 4 Cypriot PICC was trimmed to 41 centimeters and advanced through a peel-away sheath. The PICC was position with tip of PICC confirm a spot radiograph the superior vena cava. The PICC was secured to the patient's skin. The PICC was flushed. A biopatch and sterile dressing was applied. IMPRESSION: Placement of a single-lumen 4 Cypriot PICC trimmed to 41centimeters via right basilic vein. The tip of the PICC is confirmed with spot radiograph and is in the superior vena cava.
[2017-08-04 16:12] VITALS: BP 130/82; PULSE 67
--- NOTE | 2017-08-05 09:18 | CP.PCM.DIS ---
Provider - Provider Date of Admission: 07/30/17 17:25 Attending physician: Dee Owusu MD Time Spent in preparation of Discharge (in minutes): 30 Hospital Course - Lab Results Lab Results: Most Recent Lab Values WBC 5.9 K/uL (4.8-10.8) 08/03/17 07:43 RBC 4.52 Mil/uL (4.40-5.90) 08/03/17 07:43 Hgb 13.9 g/dL (12.0-18.0) 08/03/17 07:43 Hct 41.1 % (35.0-51.0) 08/03/17 07:43 MCV 91.0 fL (80.0-94.0) 08/03/17 07:43 MCH 30.8 pg (27.0-31.0) 08/03/17 07:43 MCHC 33.9 g/dL (33.0-37.0) 08/03/17 07:43 RDW 14.1 % (11.5-14.5) 08/03/17 07:43 Plt Count 276 K/uL (130-400) 08/03/17 07:43 MPV 7.5 fL (7.2-11.7) 08/03/17 07:43 Neut % (Auto) 59.8 % (50.0-75.0) 08/03/17 07:43 Lymph % (Auto) 30.5 % (20.0-40.0) 08/03/17 07:43 [place] % (Auto) 7.5 % (0.0-10.0) 08/03/17 07:43 Eos % (Auto) 1.6 % (0.0-4.0) 08/03/17 07:43 Baso % (Auto) 0.6 % (0.0-2.0) 08/03/17 07:43 Neut # 3.5 K/uL (1.8-7.0) 08/03/17 07:43 Lymph # 1.8 K/uL (1.0-4.3) 08/03/17 07:43 [place] # 0.4 K/uL (0.0-0.8) 08/03/17 07:43 Eos # 0.1 K/uL (0.0-0.7) 08/03/17 07:43 Baso # 0.0 K/uL (0.0-0.2) 08/03/17 07:43 PT 12.1 SECONDS (9.7-12.2) 07/30/17 16:55 INR 1.1 07/30/17 16:55 APTT 35 SECONDS (21-34) H 07/30/17 16:55 Sodium 140 mmol/L (132-148) 08/03/17 07:43 Potassium 4.2 mmol/L (3.6-5.2) 08/03/17 07:43 Chloride 99 mmol/L (98-107) 08/03/17 07:43 Carbon Dioxide 28 mmol/L (22-30) 08/03/17 07:43 Anion Gap 17 (-20) 08/03/17 07:43 BUN 15 mg/dL (9-20) 08/03/17 07:43 Creatinine 0.9 MG/DL (0.8-1.5) 08/03/17 07:43 Est GFR ( Amer) > 60 08/03/17 07:43 Est GFR (Non-Af Amer) > 60 08/03/17 07:43 Random Glucose 85 mg/dL (75-110) 08/03/17 07:43 Calcium 9.0 mg/dl (8.6-10.4) 08/03/17 07:43 Total Bilirubin 0.7 mg/dL (0.2-1.3) 07/30/17 16:55 AST 28 U/L (17-59) 07/30/17 16:55 ALT 25 U/L (21-72) 07/30/17 16:55 Alkaline Phosphatase 61 U/L (38-126) 07/30/17 16:55 Troponin I < 0.0120 ng/mL (0.00-0.120) 07/30/17 16:55 Total Protein 7.6 g/dL (6.3-8.3) 07/30/17 16:55 Albumin 4.3 g/dL (3.5-5.0) 07/30/17 16:55 Globulin 3.3 gm/dL (2.2-3.9) 07/30/17 16:55 Albumin/Globulin Ratio 1.3 (1.0-2.1) 07/30/17 16:55 Vancomycin Trough 19.5 ug/mL (5.0-10.0) H 08/03/17 07:43 - Hospital Course Hospital Course: 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 patient was initially seen by regional facilities manager-due to foot problems was found to have ulcerations on left foot second toe patient was brought to ER - Bone sacn confirmed osteomyelitis patient was placed on antibiotic patient decided to continue antibiotic with no amputation and was sent to sub acute for intermediate accountant antibiotic hosptal stay was uneventful Discharge Exam - Head Exam Head Exam: ATRAUMATIC, NORMAL INSPECTION, NORMOCEPHALIC - Eye Exam Eye Exam: Normal appearance - ENT Exam ENT Exam: Mucous Membranes Moist - Neck Exam Neck exam: Full Rom - Respiratory Exam Respiratory Exam: Clear to PA & Lateral, NORMAL BREATHING PATTERN - Cardiovascular Exam Cardiovascular Exam: REGULAR RHYTHM - GI/Abdominal Exam GI & Abdominal Exam: Normal Bowel Sounds, Soft - Neurological Exam Neurological exam: Alert, Oriented x3 (ambulatory but has left side weakness) - Psychiatric Exam Psychiatric exam: Normal Affect, Normal Mood - Skin Skin Exam: Intact (other than the left foot ), Normal Color Discharge Plan - Discharge Medications Prescriptions: Acetaminophen [Tylenol 325mg tab] 325 mg PO Q6H PRN #30 tab PRN Reason: Pain, Moderate (4-7) Vancomycin/0.9 % Sod Chloride [Vanco 1 Gram/250 ml-0.9% NaCl] 1 gm IV Q12H #28 plast..bag Piperacillin/Tazobact 3.375 gm [Zosyn 3.375 in NS 100ml] 3.375 gm IVPB Q8H #92 bag - Follow Up Plan Condition: GOOD Disposition: REHAB FACILITY/REHAB UNIT Instructions: Piperacillin/Tazobactam (By injection), Vancomycin (By injection) , Osteomyelitis (DC) Referrals: Dee Owusu MD [Medical Doctor] -
--- NOTE | 2017-08-05 15:13 | VASCLAB ---
STUDY DESCRIPTION: HISTORY: left foot infection PRIORS: None. TECHNIQUE: Pulse volume recording waveforms and segmental pressures of bilateral lower extremities at multiple levels were obtained. Ankle Brachial Indices (ABIs) were calculated. Report prepared by LAURA Cabello, RVT RIGHT LOWER EXTREMITY: * Brachial artery: Pressure - mmHg. * High thigh: Pressure - 199 mmHg: Ratio - 1.66: PVR waveform - Pulsatile * Low thigh: Pressure - 168 mmHg: Ratio - 1.40 PVR waveform: Pulsatile * Calf: Pressure - 165 mmHg: Ratio - 1.38 PVR waveform: Pulsatile * Posterior tibial Artery: Pressure - 158 mmHg: Ratio - 1.32 PVR waveform: Pulsatile * Dorsalis pedis Artery: Pressure - 161 mmHg: Ratio - 1.34 PVR waveform: Pulsatile * Great toe: Pressure - mmHg: Ratio - PVR waveform: Ankle brachial index (MARGARITO): 1.34 LEFT LOWER EXTREMITY: * Brachial artery: Pressure - 120 mmHg. * High thigh: Pressure - 185 mmHg: Ratio - 1.54: PVR waveform - Pulsatile * Low thigh: Pressure - 172 mmHg: Ratio - 1.43 PVR waveform: Pulsatile * Calf: Pressure - 156 mmHg: Ratio - 1.30 PVR waveform: Pulsatile * Posterior tibial Artery: Pressure - 161 mmHg: Ratio - 1.34 PVR waveform: Pulsatile * Dorsalis pedis Artery: Pressure - 152 mmHg: Ratio - 1.27 PVR waveform: Pulsatile * Great toe: Pressure - mmHg: Ratio - PVR waveform: Ankle brachial index (MARGARITO): 1.34 OTHER FINDINGS: Right: Left: IMPRESSION: Right: There is no evidence of significant arterial insufficiency per Left: There no evidence of significant arterial insufficiency.
== END 2017-08-04 22:15 | DRG 540 ==
LOC: C.ER 15:44 → C.9E 17:25 → C.3T 20:40
PROVIDERS: ADMIT Internal Medicine; ATTEND Internal Medicine
PROC: 02HV33Z Insertion of Infusion Device into Superior Vena Cava, Percutaneous Approach (ICD-10-PCS; principal; 2017-08-03)
DX: M86.172 Other acute osteomyelitis, left ankle and foot (principal); L03.115 Cellulitis of right lower limb; G81.94 Hemiplegia, unspecified affecting left nondominant side; L03.116 Cellulitis of left lower limb; G40.909 Epilepsy, unspecified, not intractable, without status epilepticus; L97.529 Non-pressure chronic ulcer of other part of left foot with unspecified severity; Z53.20 Procedure and treatment not carried out because of patient's decision for unspecified reasons; Z79.2 Long term (current) use of antibiotics; Z87.891 Personal history of nicotine dependence

== ENCOUNTER 2017-08-10 01:07 | Emergency (ER) | payer MEDICARE, BC ==
[2017-08-10 01:07] VITALS: BMI 31.9
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
--- NOTE | 2017-08-10 04:11 | CT ---
EXAM: CT Pelvis Without Intravenous Contrast CLINICAL HISTORY: 62 years old, male; Pain; Hip pain; Left hip TECHNIQUE: Axial computed tomography images of the pelvis without intravenous contrast. All CT scans at this facility use one or more dose reduction techniques, viz.: automated exposure control; ma/kV adjustment per patient size (including targeted exams where dose is matched to indication; i.e. head); or iterative reconstruction technique. Coronal and sagittal reformatted images were created and reviewed. COMPARISON: No relevant prior studies available. FINDINGS: Bones/joints: No acute fracture. Healed fractures LEFT superior and inferior pubic rami. Mild degenerative changes of lower lumbar spine. No dislocation. Soft tissues: Unremarkable. Vasculature: Mild atherosclerotic disease. Bladder: Unremarkable. No stones. Reproductive: Mildly enlarged prostate. IMPRESSION: 1. No fracture. 2. If hip pain persists, consider MRI to exclude occult fracture/internal derangement. 3. Incidental/non-acute findings are described above.
[2017-08-10 05:37] VITALS: BP 127/80; PULSE 75; RESP 20; TEMP 97.6; O2SAT 100
--- NOTE | 2017-08-10 08:22 | RAD ---
PROCEDURE: HISTORY: injury COMPARISON: None TECHNIQUE: AP view of the pelvis and applicable frog leg views obtained. FINDINGS: Inferior lumbar spondylosis and right inferior facet hypertrophic sclerotic arthrosis. Unremarkable sacroiliac and pubic symphyseal joints. Bilateral superolateral hip joint space narrowing with bilateral superolateral acetabular spurring. There is a foreshortened appearance to the left inferior pubic ring no acute fracture here suspect. Projectional effects versus old healed minimal fracture here are considerations. IMPRESSION: No acute fracture or dislocation. Bilateral hip arthrosis. Projectional effects versus old healed left inferior pubic ramus fracture
--- NOTE | 2017-08-10 08:31 | RAD ---
PROCEDURE: Radiographs of the left elbow. HISTORY: INJURY COMPARISON: No prior. FINDINGS: BONES: No dislocation. A distal ulnar metaphyseal faint radiolucency is noted. Here nondisplaced fracture perhaps subacute needs to be considered. JOINTS: . No osteoarthritis. SOFT TISSUES: Normal. JOINT EFFUSION: None. OTHER FINDINGS: None IMPRESSION: Limited exam no true lateral view presented. Technologist note- patient's partly paralyzed. If clinically suspect left elbow trauma baseline exam, consider CT elbow. Distal ulnar nondisplaced fracture needs to be considered chronicity indeterminate -possibly subacute. Left wrist exam x-ray recommended
--- NOTE | 2017-08-10 08:42 | RAD ---
PROCEDURE: Radiographs of the Left Shoulder HISTORY: injury COMPARISON: No prior. FINDINGS: BONES: Lateral clavicle -left AC joint abnormal morphology - lateral clavicular postsurgical prior resection question surgical history aeration recommended. Mild bulbous deformity is -multiple superior left ribs - healed old fractures inferred Thoracic spondylosis JOINTS: Glenohumeral and acromioclavicular arthrosis. Probable lateral clavicular -AC joint postsurgical change High-riding humeral head -chronic rotator cuff tendinopathy inferred SOFT TISSUES: Normal. OTHER FINDINGS: None. IMPRESSION: Old healed left upper rib fractures. No acute rib fractures appreciated. Left lateral clavicle -AC joint postsurgical changes aspect. Glenohumeral joint space narrowing -high-riding humeral head- chronic rotator cuff pathology and arthrosis inferred. No acute fractures suspect
== END 2017-08-10 05:55 ==
LOC: SUPCPDRO 01:07 → C.ER 01:07
DX: S40.012A Contusion of left shoulder, initial encounter (principal); S70.02XA Contusion of left hip, initial encounter; W18.39XA Other fall on same level, initial encounter; Y93.89 Activity, other specified; Y92.128 Other place in nursing home as the place of occurrence of the external cause

== ENCOUNTER 2017-08-15 00:40 | Emergency (ER) | payer MEDICARE, BC ==
[2017-08-15 00:42] VITALS: BMI 31.9
[2017-08-15 00:58] VITALS: O2SAT 99
--- NOTE | 2017-08-15 04:04 | C.PDOC ---
History Of Present Illness 62 year old male was sent to the ED from group home for evaluation of a positive left acute ulnar fracture from a fall on 08/09/2017. Patient notes pain with movement and denies other injuries or changes in sensation. Time Seen by Provider: 08/15/17 01:10 Chief Complaint (Nursing): Finger,Hand,&Wrist History Per: Patient History/Exam Limitations: no limitations Onset/Duration Of Symptoms: Days (6 days prior ) Current Symptoms Are (Timing): Better Quality: "Pain" Exacerbating Factor(s): Movement Recent travel outside of the [place]: No Additional History Per: Prison Past Medical History Reviewed: Historical Data, Nursing Documentation, Vital Signs Vital Signs: Last Vital Signs Temp 97.6 F 08/15/17 04:10 Pulse 77 08/15/17 04:10 Resp 18 08/15/17 04:10 BP 160/90 H 08/15/17 04:10 Pulse Ox 99 08/15/17 05:11 - Medical History PMH: CVA, Seizures - [facility] Procedures INSERTION OF INFUSION DEV INTO SUP VENA CAVA, PERC APPROACH (07/30/17) Family History: States: Unknown Family Hx - Social History Hx Tobacco Use: No Hx Alcohol Use: No Hx Substance Use: No - Immunization History Hx Tetanus Toxoid Vaccination: No Hx Influenza Vaccination: No (REFUSES) Hx Pneumococcal Vaccination: No (REFUSES) Review Of Systems Constitutional: Negative for: Fever, Chills Musculoskeletal: Positive for: Arm Pain (left arm pain ) Neurological: Negative for: Numbness Physical Exam - Physical Exam Appears: Non-toxic, No Acute Distress Skin: Warm, Dry Head: Atraumatic, Normacephalic Eye(s): bilateral: Normal Inspection, PERRL, EOMI Oral Mucosa: Moist Neck: Supple Chest: Symmetrical, No Deformity Cardiovascular: Rhythm Regular, No Murmur Respiratory: Normal Breath Sounds, No Rales, No Rhonchi, No Wheezing Extremity: No Normal ROM (decreased ROM of left wrist, secondary to pain. ), Tenderness (dorsal ulnar aspect of left arm), Capillary Refill (good capillary refill, less than two seconds ), Swelling (dorsal ulnar aspect of left arm ) Pulses: Left Radial: Normal, Right Radial: Normal Neurological/Psych: Oriented x3 ED Course And Treatment O2 Sat by Pulse Oximetry: 99 (RA) - Other Rad Left Forearm X-Ray X-Ray: Interpreted by Me, Viewed By Me Interpretation: Healing ulnar fracture. Progress Note: Left forearm and wrist X-Rays were ordered. Spoke to group home to communicate status of patient's fracture as healing. Orthopedic Time Out: Side verified, Site verified Procedure: Splint Other:: Sugar tong splint Performed by: Mid-level Provider (Chance) Diagnosis: Fracture Distal Sensation: Normal Distal Motor Function: Normal Patient tolerated procedure: Well Disposition - Disposition Referrals: Jose Sears III, MD [Staff Provider] - Disposition: HOME/ ROUTINE Disposition Time: 03:15 Condition: FAIR Additional Instructions: Follow up with the Orthopedist within 1-2 days. Return if worsened. 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 - Scribe Statement The provider has reviewed the documentation as recorded by the Scribe Aleyda Rothman All medical record entries made by the Scribe were at my direction and personally dictated by me. I have reviewed the chart and agree that the record accurately reflects my personal performance of the history, physical exam, medical decision making, and the department course for this patient. I have also personally directed, reviewed, and agree with the discharge instructions and disposition.
[2017-08-15 04:12] VITALS: BP 160/90; PULSE 77; RESP 18; TEMP 97.6
--- NOTE | 2017-08-15 12:49 | RAD ---
PROCEDURE: Radiographs of the Left Forearm HISTORY: forearm injury and pain, hx of ulnar fx COMPARISON: None available. TECHNIQUE: Frontal and lateral views obtained. FINDINGS: BONES: Distal left ulnar fracture is noted. JOINT SPACES: Unremarkable. OTHER FINDINGS: None. IMPRESSION: Suboptimal study. Distal left ulnar fracture. No evidence of acute fracture or dislocation at the left elbow in this limited study.
--- NOTE | 2017-08-15 14:03 | RAD ---
PROCEDURE: Left Wrist Radiographs. HISTORY: fall hx of ulnar fx COMPARISON: None. FINDINGS: BONES: Fracture at the distal left ulnar bone is again noted. No other acute fracture or dislocation. JOINTS: Normal. No dislocation. SOFT TISSUES: Normal. OTHER FINDINGS: None. IMPRESSION: Acute slightly displaced fracture at the distal left ulnar bone.
== END 2017-08-15 04:13 | disposition home or self-care (01) ==
LOC: C.ER 00:40
DX: S52.602D Unspecified fracture of lower end of left ulna, subsequent encounter for closed fracture with routine healing (principal); W18.39XD Other fall on same level, subsequent encounter

== ENCOUNTER 2017-11-15 15:13 | Inpatient (IN) | payer MEDICARE, BC ==
[2017-11-15 15:13] VITALS: BMI 31.9
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
[2017-11-15 16:24] LABS: BASO # 0.1 K/uL (0.0-0.2); BASO % 1.4 % (0.0-2.0); EOS % 0.2 % (0.0-4.0); HEMOGLOBIN 13.2 g/dL (12.0-18.0); LYMPH # 0.7 K/uL (1.0-4.3); LYMPH % 14.8 % (20.0-40.0); MEAN CORPUSCULAR HEMOGLOBIN 30.2 pg (27.0-31.0); MEAN CORPUSCULAR HGB CONC 34.2 g/dL (33.0-37.0); MEAN PLATELET VOLUME 6.7 fL (7.2-11.7); MONO # 0.2 K/uL (0.0-0.8); MONO % 5.1 % (0.0-10.0); NEUT # 3.7 K/uL (1.8-7.0); NEUT % 78.5 % (50.0-75.0); NRBC % 0.1 % (0.0-2.0); RBC 4.37 Mil/uL (4.40-5.90); RED CELL DISTRIBUTION WIDTH 13.9 % (11.5-14.5); WHITE BLOOD COUNT 4.8 K/uL (4.8-10.8)
[2017-11-15 16:28] LABS: MEAN CELL VOLUME 88.5 fL (80.0-94.0)
[2017-11-15 16:41] LABS: ALB/GLOB RATIO 1.1 (1.0-2.1); ALBUMIN 4.2 g/dL (3.5-5.0); ALT/SGPT 44 U/L (21-72); AST/SGOT 58 U/L (17-59); BLOOD UREA NITROGEN 39 mg/dL (9-20); CALCIUM 8.6 mg/dl (8.6-10.4); GFR AFRICAN-AMERICAN > 60; GFR NON-AFRICAN AMERICAN 56; MAGNESIUM 2.4 mg/dL (1.6-2.3)
--- NOTE | 2017-11-15 16:51 | RAD ---
HISTORY: SOB COMPARISON: Chest x-ray performed 07/30/17 TECHNIQUE: Chest, one view. FINDINGS: Examination limited by habitus, hypoinflation, and patient obliquity. LUNGS: No focal consolidation. Please note that chest x-ray has limited sensitivity for the detection of pulmonary masses. PLEURA: No significant pleural effusion identified. No definite pneumothorax . CARDIOVASCULAR: Heart size appears top normal. OSSEOUS STRUCTURES: Degenerative changes. VISUALIZED UPPER ABDOMEN: Unremarkable. OTHER FINDINGS: None. IMPRESSION: Hypoinflation.
[2017-11-15 16:52] LABS: B-TYPE NATRIURETIC PEPTIDE 77.1 pg/mL (0-900)
[2017-11-15 16:59] LABS: FREE T4 1.14 ng/dL (0.78-2.19)
--- NOTE | 2017-11-15 17:23 | CT ---
PROCEDURE: CT HEAD WITHOUT CONTRAST. HISTORY: R/O Bleed COMPARISON: Noncontrast head CT performed 02/07/15 TECHNIQUE: Axial computed tomography images were obtained through the head/brain without intravenous contrast. Radiation dose: Total exam DLP = 1624.36 mGy-cm. This CT exam was performed using one or more of the following dose reduction techniques: Automated exposure control, adjustment of the mA and/or kV according to patient size, and/or use of iterative reconstruction technique. FINDINGS: Streak artifact obscures evaluation of the skullbase. HEMORRHAGE: No intracranial hemorrhage. BRAIN: Diffuse atrophy with prominence of the ventricles and sulci noted. No mass effect or edema. Evidence of encephalomalacia involving the right frontal and temporal lobes as well as the insula. Tiny hypodensities in the basal ganglia suggestive for remote lacunar infarcts. Moderate scattered periventricular and subcortical white matter hypodensities, which are nonspecific, but often seen with chronic microvascular ischemic disease. Please note that MRI with diffusion imaging is more sensitive in the detection of acute ischemic event. VENTRICLES: Compensatory dilatation of the right lateral ventricle. CALVARIUM: Unremarkable. PARANASAL SINUSES: Small fluid or mucosal thickening within bilateral maxillary sinuses. MASTOID AIR CELLS: Unremarkable as visualized. No inflammatory changes. OTHER FINDINGS: Debris in the bilateral external auditory canal which may represent cerumen. IMPRESSION: Evidence of encephalomalacia involving the right frontal and temporal lobes as well as the insula. Remote basal ganglia lacunar infarcts. Moderate scattered nonspecific white matter changes. Small fluid or mucosal thickening within bilateral maxillary sinuses. Correlate clinically for sinusitis. Additional findings as above.
[2017-11-15 17:58] LABS: SQUAMOUS EPITHIAL 2 /hpf (0-5); URINE BACTERIA FEW (<OCC); URINE BILIRUBIN NEGATIVE (NEGATIVE); URINE BLOOD 2+ (NEGATIVE); URINE CLARITY Hazy (Clear); URINE GLUCOSE (UA) NORMAL (Normal); URINE LEUKOCYTE ESTERASE NEG Leu/uL (Negative); URINE NITRATE NEGATIVE (NEGATIVE); URINE PROTEIN 2+ mg/dL (NEGATIVE)
[2017-11-15 18:03] LABS: URINE COLOR YELLOW (YELLOW)
[2017-11-15 18:15] LABS: BARBITURATES, UR NEGATIVE (NEGATIVE); BENZODIAZEPINES, UR NEGATIVE (NEGATIVE); OPIATES, UR NEGATIVE (NEGATIVE); PHENCYCLIDINE, UR NEGATIVE (NEGATIVE)
[2017-11-15] MEDS: Dextrose 5%/0.45% NS 1,000 ML IV SCH (20:53)
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
[2017-11-16 04:18] LABS: EOS % 0.5 % (0.0-4.0); HEMOGLOBIN 12.5 g/dL (12.0-18.0); LYMPH # 1.2 K/uL (1.0-4.3); LYMPH % 31.1 % (20.0-40.0); MEAN CELL VOLUME 88.7 fL (80.0-94.0); MEAN CORPUSCULAR HEMOGLOBIN 30.3 pg (27.0-31.0); MEAN CORPUSCULAR HGB CONC 34.1 g/dL (33.0-37.0); MEAN PLATELET VOLUME 6.7 fL (7.2-11.7); MONO # 0.4 K/uL (0.0-0.8); MONO % 9.2 % (0.0-10.0); NEUT # 2.3 K/uL (1.8-7.0); NEUT % 58.2 % (50.0-75.0); NRBC % 0.1 % (0.0-2.0); RBC 4.12 Mil/uL (4.40-5.90); RED CELL DISTRIBUTION WIDTH 13.8 % (11.5-14.5); WHITE BLOOD COUNT 3.9 K/uL (4.8-10.8)
[2017-11-16 04:32] LABS: ALB/GLOB RATIO 1.1 (1.0-2.1); ALBUMIN 3.7 g/dL (3.5-5.0); ALT/SGPT 42 U/L (21-72); AST/SGOT 69 U/L (17-59); BLOOD UREA NITROGEN 30 mg/dL (9-20); GFR AFRICAN-AMERICAN > 60; GFR NON-AFRICAN AMERICAN > 60
[2017-11-16] MEDS: Dextrose 5%/0.45% NS 1,000 ML IV SCH ×3 (07:16→17:00)
[2017-11-16] MEDS ORDERED: ESLICARBAZEPINE ACETATE PO SCH (10:00)
[2017-11-16] MEDS: Enoxaparin 40 mg Syringe SC SCH (10:10)
[2017-11-16] MEDS: Pantoprazole 40 mg EC Tab PO SCH (10:11)
[2017-11-16] MEDS: APTIOM PO SCH (13:01)
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
--- NOTE | 2017-11-16 23:57 | CARD ---
APPROVED REPORT EKG Measurement Heart [id number] <Conclusion> Sinus bradycardia Minimal voltage criteria for LVH, may be normal variant Borderline ECG
[2017-11-17] MEDS: Dextrose 5%/0.45% NS 1,000 ML IV SCH ×3 (03:02→19:13)
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
[2017-11-17] MEDS: Enoxaparin 40 mg Syringe SC SCH (09:22)
[2017-11-17] MEDS: Pantoprazole 40 mg EC Tab PO SCH (09:23)
[2017-11-17] MEDS: Multiple Vitamins Tab PO SCH (09:23)
[2017-11-17] MEDS: APTIOM PO SCH (09:23)
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
--- NOTE | 2017-11-18 06:50 | CON ---
ADDENDUM Results of his CAT scan showed evidence of encephalomalacia involving right frontal and right temporal lobes as well as the insula. There is a remote basal ganglia lacunar infarct, also moderate scattered nonspecific what matter changes. Kenn Kingston MD
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
[2017-11-18] MEDS: Enoxaparin 40 mg Syringe SC SCH (10:10)
[2017-11-18] MEDS: APTIOM PO SCH (10:10)
[2017-11-18] MEDS: Multiple Vitamins Tab PO SCH (10:11)
[2017-11-18] MEDS: Pantoprazole 40 mg EC Tab PO SCH (10:11)
[2017-11-18] MEDS: Dextrose 5%/0.45% NS 1,000 ML IV SCH ×2 (11:09→19:34)
[2017-11-19 07:06] LABS: BASO # 0.1 K/uL (0.0-0.2); BASO % 1.2 % (0.0-2.0); EOS # 0.1 K/uL (0.0-0.7); EOS % 1.7 % (0.0-4.0); HEMOGLOBIN 12.8 g/dL (12.0-18.0); LYMPH # 1.1 K/uL (1.0-4.3); LYMPH % 24.7 % (20.0-40.0); MEAN CELL VOLUME 88.9 fL (80.0-94.0); MEAN CORPUSCULAR HGB CONC 34.8 g/dL (33.0-37.0); MEAN PLATELET VOLUME 6.9 fL (7.2-11.7); MONO # 0.4 K/uL (0.0-0.8); MONO % 8.4 % (0.0-10.0); NEUT # 2.9 K/uL (1.8-7.0); NRBC % 0.2 % (0.0-2.0); RBC 4.13 Mil/uL (4.40-5.90); WHITE BLOOD COUNT 4.5 K/uL (4.8-10.8)
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
[2017-11-19 08:27] LABS: BLOOD UREA NITROGEN 9 mg/dL (9-20); CALCIUM 8.7 mg/dl (8.6-10.4); GFR AFRICAN-AMERICAN > 60; GFR NON-AFRICAN AMERICAN > 60
[2017-11-19] MEDS ORDERED: Pneumococcal 23-Valent Vaccine IM ONE (10:00)
[2017-11-19] MEDS ORDERED: Influenza Vaccine 60 mcg/0.5 mL SYR (4YR UP) IM ONE (10:00)
[2017-11-19] MEDS: Pantoprazole 40 mg EC Tab PO SCH (10:36)
[2017-11-19] MEDS: Multiple Vitamins Tab PO SCH (10:37)
[2017-11-19] MEDS: Enoxaparin 40 mg Syringe SC SCH (10:37)
[2017-11-19] MEDS: APTIOM PO SCH (10:38)
[2017-11-19] MEDS: Dextrose 5%/0.45% NS 1,000 ML IV SCH (14:20)
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
--- NOTE | 2017-11-19 16:13 | CP.PCM.PN ---
Subjective - Date & Time of Evaluation Date of Evaluation: 11/19/17 Time of Evaluation: 16:11 - Subjective Subjective: PT SEEN BY DR. BECERRA AND DR. LUNA. PER MDS PT IS COMPETENT AND CAN MAKE OWN DECISIONS. PT UNDERSTANDS RISKS OF GOING HOME HOWEVER HE IS PERSISTENT. OK PER DR. BECERRA TO D/C HOME. PT RISK OF READMISSIONS FROM [facility]. PER DR. BECERRA, IF HE CAN GET TRANSPORTATION TO HER OFFICE HE CAN SEE HER THE FIRST WEEK OF DECEMBER FOR F/U. CM AWARE OF D/C AND SW TO ARRANGE TRANSPORT HOME TODAY. NO FURTHER ORDERS. Objective - Vital Signs/Intake and Output Vital Signs (last 24 hours): Temp Pulse Resp BP Pulse Ox 97.6 F 80 18 114/74 97 11/19/17 15:10 11/19/17 15:10 11/19/17 15:10 11/19/17 15:10 11/19/17 15:10 Intake and Output: 11/19/17 11/19/17 06:59 18:59 Intake Total 990 600 Output Total 350 900 Balance 640 -300 - Medications Medications: Current Medications Acetaminophen (Tylenol 325mg Tab) 325 mg PO Q6H PRN PRN Reason: Pain, moderate (4-7) Enoxaparin Sodium (Lovenox) 40 mg SC DAILY [facility] Last Admin: 11/19/17 10:37 Dose: 40 mg Home Med (Patient's Own Medication) 3 tab PO DAILY [facility] Last Admin: 11/19/17 10:38 Dose: 3 tab Lamotrigine (Lamictal) 200 mg PO TID [facility] Last Admin: 11/19/17 14:20 Dose: 200 mg Levetiracetam (Keppra) 2,000 mg PO BID [facility] Last Admin: 11/19/17 10:37 Dose: 2,000 mg Multivitamins (Hexavitamin) 1 tab PO DAILY [facility] Last Admin: 11/19/17 10:37 Dose: 1 tab Mupirocin (Bactroban Ointment) 0 gm TOP DAILY [facility] Last Admin: 11/19/17 10:37 Dose: 1 applic Pantoprazole Sodium (Protonix Ec Tab) 40 mg PO DAILY [facility] Last Admin: 11/19/17 10:36 Dose: 40 mg - Labs Labs: 11/19/17 06:45 11/19/17 06:45
--- NOTE | 2017-11-19 19:02 | PN ---
DATE: 11/19/2017 SUBJECTIVE: The patient seen, he is feeling much better. Patient does not want to go for a subacute rehab, but wants to go home. Patient has no more subacute days and his [id number] who lives upstairs is willing to help him. Patient has limited insight and judgment. He is also a hoarder, but does not want to go other than home. Also on review of his meds, he said he has been taking 2 g b.i.d. of Keppra, Lamictal 200 mg t.i.d. and also another medication called Aptiom. Patient was seen by Dr. Bowers, who noted that the patient is taking too much anti-seizure medication, but he did not lower his meds.. Anytime, patient may follow up as an outpatient for possible reduction of his meds in the future. VITAL SIGNS: Temperature is 97.6, pulse rate is 65, blood pressure 148/91, respirations 20, oxygen sat is 94%. REVIEW OF SYSTEMS: GENERAL: Patient is alert and oriented x3, forgetful at times, seen in his room. He said he wants to go home. SKIN: No diaphoresis. HEENT: No headache, no dizziness. NECK: Supple. RESPIRATORY: No dyspnea. CARDIOVASCULAR: No chest pain. GASTROINTESTINAL: No nausea, no vomiting. EXTREMITIES: Gait is unsteady, has some weakness. MUSCULOSKELETAL: Feels weak. NEUROLOGIC: Alert and oriented x3. GENITOURINARY: No dysuria. MENTAL STATUS EXAMINATION: Elderly male who looks stated age, oriented x3. Mood is calmer. Affect is reactive. Speech spontaneous. Thought process: Forgetful. Thought content: Patient wants to go home. Does not want to go for subacute rehab. No suicidal or homicidal ideation. No psychosis. Attention and memory seems to be limited at times. Insight and judgment is fair. Impulse control is fair. IMPRESSION: History of depression and anxiety, history of mood disorder secondary to medical problems, history of traumatic brain injury. PLAN AND RECOMMENDATIONS: Patient seen and meds reviewed. Patient was seen today with Dr. Owusu, attending. Patient psych guillen can be discharged to home. Patient to continue current doses of meds. Dr. Bowers, saw the patient and did not recommend any drastic change of his medication, but could be done, to be tapered slowly as an outpatient. Psych guillen he is stable for discharge. Patient to continue current medication and as usual the [id number] will help him once he is discharged to home. Kenn Kingston MD MTDFarshad
[2017-11-19 19:49] LABS: LEVETIRACETAM 57.4 mcg/mL
[2017-11-20 00:45] VITALS: BP 121/85; PULSE 85; RESP 20; TEMP 98.1; O2SAT 95
[2017-11-20] MEDS: Pantoprazole 40 mg EC Tab PO SCH (10:08)
[2017-11-20] MEDS: Enoxaparin 40 mg Syringe SC SCH (10:09)
[2017-11-20] MEDS: Multiple Vitamins Tab PO SCH (10:09)
[2017-11-20] MEDS: APTIOM PO SCH (10:11)
== END 2017-11-20 10:18 | disposition home or self-care (01) | DRG 641 ==
LOC: C.ER 15:13 → C.9E 18:28 → C.6T 11-16 13:03
PROVIDERS: ADMIT Internal Medicine; ATTEND Internal Medicine
DX: E86.0 Dehydration (principal); G93.89 Other specified disorders of brain; R56.1 Post traumatic seizures; I69.354 Hemiplegia and hemiparesis following cerebral infarction affecting left non-dominant side; F39 Unspecified mood [affective] disorder; I69.398 Other sequelae of cerebral infarction; R29.6 Repeated falls; R53.1 Weakness; F41.8 Other specified anxiety disorders; Z87.820 Personal history of traumatic brain injury; Z87.891 Personal history of nicotine dependence

== ENCOUNTER 2019-03-02 11:53 | Emergency (ER) | payer MEDICARE, BC ==
[2019-03-02 11:53] VITALS: BMI 31.9
[2019-03-02 12:12] VITALS: BP 119/74; PULSE 75; RESP 18; TEMP 97.6; O2SAT 96
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
== END 2019-03-02 14:24 | disposition home or self-care (01) ==
LOC: C.ER 11:53
DX: F42.3 Hoarding disorder (principal)